=== PATIENT | female | born 1960 | race Caucasian/White ===

== ENCOUNTER 2021-02-03 10:58 | Emergency (ER) | payer OTHER | END 2021-02-03 13:47 | disposition home or self-care (01) | LOC: FER 10:58 | DX: S62.613A Displaced fracture of proximal phalanx of left middle finger, initial encounter for closed fracture (principal); S62.615A Displaced fracture of proximal phalanx of left ring finger, initial encounter for closed fracture; S62.617A Displaced fracture of proximal phalanx of left little finger, initial encounter for closed fracture; I10 Essential (primary) hypertension; W19.XXXA Unspecified fall, initial encounter; Y92.009 Unspecified place in unspecified non-institutional (private) residence as the place of occurrence of the external cause | CPT/HCPCS: 73030; 73130 ==